=== PATIENT | female | born 1985 | race Caucasian/White ===

== ENCOUNTER 2017-01-31 19:37 | Emergency (ER) | payer OTHER ==
[~2017-01-31] VITALS: Ht 160 cm; Wt 117.0 kg
[~2017-01-31 19:37] MED LIST: ACET-1087 PO; CLON1TAB PO; IMI50 PO; [UNRECOGNIZED DRUG - CODE] PO
[2017-01-31 20:03] VITALS: BP 117/67
--- NOTE | 2017-01-31 22:20 | NUR ---
PT TAKEN TO BED 6
--- NOTE | 2017-01-31 22:49 | NUR ---
Dr. Huggins evaluating patient at bedside.
--- NOTE | 2017-01-31 23:00 | NUR ---
31Y/F PT. PRESENTS TO ED WITH C/O LOWER MAKSIM PAIN WITH N/V X1 DAY. PT. STATES HAVING LOWER BACK PAIN WITH N/V LAST NIGHT, ALSO STATES DIARRHEA. HX. KIDNEY STONE. AAO X4, AMBULATORY WITH STEAY GAIT. RESPIRATIONS ROOM AIR, EVEN AND UNLABORED. SKIN WARM AND DRY. ABDOMEN SOFT, NON TENDER, ACTIVE BS X4. C/O PAIN 10/. VSS, ER MADE AWARE OF PT. STATUS.
[2017-01-31] MEDS ORDERED: KETOROLAC 15 MG/ML VIAL IVP ONE (23:10)
[2017-01-31 23:38] LABS: HEMATOCRIT 41.2 % (36-48); HEMOGLOBIN 13.9 g/dL (12.0-16.0); MEAN CORPUSCULAR HEMOGLOBIN 29 pg (27-31); MEAN CORPUSCULAR HGB CONC 34 g/dL (33-37); MEAN CORPUSCULAR VOLUME 85 fL (80-94); PLATELET COUNT (AUTO) 265 K/uL (140-450); RED BLOOD CELL COUNT(AUTO) 4.83 MIL/uL (4.20-5.40); RED CELL DISTRIBUTION WIDTH 12.1 % (11.6-13.7)
[2017-01-31 23:48] LABS: ANION GAP 14.2 (8-16); CARBON DIOXIDE 26.6 mmol/L (21-32); CREATININE 0.8 mg/dL (0.6-1.3); POTASSIUM 3.8 mmol/L (3.5-5.1)
[2017-01-31 23:55] LABS: ALBUMIN 3.2 g/dL (3.4-5.0); TOTAL BILIRUBIN 0.2 mg/dL (0.0-1.0)
--- NOTE | 2017-02-01 | NUR ---
Patient appears to be resting comfortably in bed. Vital Signs within normal limits. Respirations even and unlabored.
[2017-02-01 00:03] LABS: APPEARANCE,URINE CLOUDY (CLEAR); BILIRUBIN,URINE NEGATIVE (NEGATIVE); BLOOD, URINE NEGATIVE (NEGATIVE); COLOR,URINE YELLOW (YELLOW); LEUKOCYTE ESTERASE ,URINE NEGATIVE (NEGATIVE); NITRITE, URINE NEGATIVE (NEGATIVE); UGLUCOSE NEGATIVE (NEGATIVE)
[2017-02-01 00:14] LABS: EOSINOPHILS % (MANUAL) 1 % (0-4); LYMPHOCYTES % (MANUAL) 24 % (20-46); MONOCYTES % (MANUAL) 1 % (5-12)
[2017-02-01 00:43] LABS: RBC,URINE 0-5 (RARE) /HPF (0-5); WBC,URINE 0-5 (RARE) /HPF (0-5)
[2017-02-01] MEDS ORDERED: MORPHINE SULFATE 4 MG/ML SYR IM ONE (00:50)
--- NOTE | 2017-02-01 01:26 | NUR ---
Patient discharged with v/s stable. Written and verbal after care instructions given and explained. Patient alert, oriented and verbalized understanding of instructions. Ambulatory with steady gait. All questions addressed prior to discharge. ID band removed. Patient advised to follow up with PMD. Rx of ZOFRAN 4 MG, NORCO 5/325 MG given. Patient educated on indication of medication including possible reaction and side effects. Opportunity to ask questions provided and answered.
[2017-02-01 01:29] VITALS: BP 115/65
== END 2017-02-01 01:26 | disposition home or self-care (01) ==
LOC: MED 19:37
DX: R10.9 Unspecified abdominal pain (principal); R19.7 Diarrhea, unspecified; R11.2 Nausea with vomiting, unspecified; Z87.442 Personal history of urinary calculi; Z79.899 Other long term (current) drug therapy; Z88.8 Allergy status to other drugs, medicaments and biological substances
CPT/HCPCS: 36415; 74176; 80053; 81001; 81025; 83690; 85025; 87086; 96372; 96374; 99285; J1885; J2270; 84703

== ENCOUNTER 2017-04-02 00:55 | Emergency (ER) | payer OTHER ==
[~2017-04-02] VITALS: Ht 160 cm; Wt 99.8 kg
[2017-04-02 01:00] VITALS: BP 122/75
--- NOTE | 2017-04-02 01:05 | NUR ---
to lobby, a/w bed, serg, vsleonarda, ermchichi noted
--- NOTE | 2017-04-02 02:10 | NUR ---
31/F CAME IN W C/O RLQ PAIN RADIATING TO RT FLANK STARTED X 2 WEEKS AGO, REPORTS DYSURIA/HEMATURIA. DENIES FEVER/CHILLS, N/V/D. BS ACTIVE X 4, ABD ROUND, SOFT, +TENDERNESS +RLQ. PMH: HYDROCEPHALUS, KIDNEY STONES, NO RX, OTC IBUPROFEN 2345 YESTERDAY WITHOUT RELIEF.
[2017-04-02] MEDS ORDERED: KETOROLAC 60 MG/2 ML VIAL IM ONE (03:20)
[2017-04-02 04:18] VITALS: BP 128/73
--- NOTE | 2017-04-02 04:18 | NUR ---
Patient discharged with v/s stable. Written and verbal after care instructions given and explained. Patient alert, oriented and verbalized understanding of instructions. Ambulatory with steady gait. All questions addressed prior to discharge. ID band removed. Patient advised to follow up with PMD. Rx of NORCO AND MOTRIN given. Patient educated on indication of medication including possible reaction and side effects. Opportunity to ask questions provided and answered.
== END 2017-04-02 04:18 | disposition home or self-care (01) ==
LOC: MED 00:55
DX: M54.5 Low back pain (principal); R30.0 Dysuria; N93.9 Abnormal uterine and vaginal bleeding, unspecified; Z90.49 Acquired absence of other specified parts of digestive tract; Z87.442 Personal history of urinary calculi; Z79.899 Other long term (current) drug therapy; Z88.8 Allergy status to other drugs, medicaments and biological substances
CPT/HCPCS: 81002; 81025; 96372; 99283; J1885